=== PATIENT | female | born 1955 | race Caucasian/White ===

== ENCOUNTER 2017-01-21 11:44 | Day surgery (SDC) | payer MEDICARE, MEDICAID ==
[~2017-01-21] VITALS: Ht 170.2 cm; Wt 79.1 kg
--- NOTE | ~2017-01-21 | PRO ---
PATIENT:NATHAN AREVALO MEDICAL RECORD: [id number] : 53 LOCATION:[facility] ADMISSION DATE: 01/21/17 PROCEDURE PERFORMED BY: GONZALEZ CANELA DO PROCEDURE DATE: 01/21/17 PROCEDURE: Esophagogastroduodenoscopy with biopsies. INDICATION: Epigastric pain, generalized abdominal pain, heart burn, dysphagia, and nausea. SCOPE: Olympus video gastroscope. MEDICATIONS: Propofol 200 milligrams IV per anesthesia. ESTIMATED BLOOD LOSS: Minimal. COMPLICATIONS: None. FINDINGS: Informed consent was given. The patient was made comfortable with the above medication. After reaching an adequate level of sedation by slow IV push, the patient was placed on her left side. The endoscope was then advanced under direct visualization through the mouth to the second portion of the duodenum. The upper, middle, and distal thirds of the esophagus appeared normal. At the gastroesophageal junction there was evidence of mild LA class B reflux induced esophagitis. There was also an appearance that could be possible Hobbs's esophagus. Random biopsies were taken of the gastroesophageal junction to submit for histology and to rule out Hobbs's. The endoscope was advanced beyond the gastroesophageal junction into the stomach and retroflexed to view the cardia. There was a area of inflamed tissue involving the cardia which was biopsied. In the fundus and body of the stomach there were multiple benign appearing fundic gland type polyps. Throughout the stomach and especially in the antral area there was erythema and granularity consistent with possible gastritis. Random biopsies were taken to submit for histology and to rule out Helicobacter-pylori. The endoscope was advanced beyond the pylorus and in the duodenum where the bulb and second portion of the duodenum appeared normal. IMPRESSIONS: 1. LA class B reflux induced esophagitis. 2. Possible Hobbs's esophagus, biopsies taken. 3. Erythema and granularity in the stomach consistent with gastritis, biopsies taken. 4. Inflamed tissue involving the cardia, biopsies taken. 5. Benign appearing sessile fundic gland type polyps throughout the body and fundus of the stomach. PLAN/RECOMMENDATIONS: 1. Discharge home when recovery parameters are met. 2. Gastroesophageal reflux disease diet and reflux precautions. 3. Continue current medications. 4. Add Carafate tabs, 1 gram dissolved in 20 milliliters of water and taken four times a day times two weeks or longer if this helps symptoms. 5. Gastric emptying scan regarding epigastric pain and nausea. 6. Consider upper gastrointestinal with small bowel follow through regarding the symptoms of generalized pain, nausea, and dysphagia. 7. Follow up biopsy specimen results and symptom changes with initiation of Carafate. PROCEDURE NOTE [id number] NATHAN AREVALO NATHAN A DO CC: [id number] DICTATION DATE: 01/21/1749 STEM MOUNTER: TC 01/22/1749 [facility] 01/21/17 [id number] [place] [address]
[2017-01-21] MEDS ORDERED: PROTONIX40 MG PO (12:21)
[2017-01-21] MEDS ORDERED: COREG12.5 MG PO (12:22)
[2017-01-21] MEDS ORDERED: LEVOTHYROXINE100 MCG PO (12:22)
[2017-01-21 12:23] LABS: BASOPHILS 1.3 % (0-2); EOSINOPHILS 4.1 % (0-7); HEMATOCRIT 53.5 % (36.0-48.0); HEMOGLOBIN 17.7 g/dL (12-16); IMMATURE GRANULOCYTES 0.1 % (0-5); LYMPHOCYTES 29.2 % (15-50); MCH 26.4 pg (26.0-34.0); MCHC 33.1 g/dL (31.0-37.0); MCV 79.9 fL (80.0-100.0); MEAN PLATELET VOLUME 9.9 fL (7.4-10.4); MONOCYTES 7.6 % (2-11); NEUTROPHILS 57.7 % (40-80); PLATELET COUNT 426 10x3/uL (130-400); RDW 15.4 % (11.5-14.5); WBC 7.9 10x3/uL (4.8-10.8)
[2017-01-21] MEDS ORDERED: OXYCODONE HCL10 MG PO (12:23)
[2017-01-21] MEDS ORDERED: XANAX0.5 MG PO (12:23)
[2017-01-21] MEDS ORDERED: GABAPENTIN100 MG PO (12:25)
[2017-01-21 12:26] VITALS: BP 136/76; Ht 170.2 cm; Wt 79.1 kg
[2017-01-21 12:34] LABS: ANION GAP 10.8 mmol/L (8-16); CARBON DIOXIDE 29.2 mmol/L (21.0-32.0); CREATININE - SERUM 1.2 mg/dL (0.6-1.3)
--- NOTE | 2017-01-21 15:23 | NUR ---
1455- PT SITTING UP WITH HOB ELEVATED. SON AT BEDSIDE. DR. CANELA DISCUSSING PROCEDURAL FINDINGS WITH PT AND SON. VSS. WILL MONITOR. 1510- FULL LIQUIDS TOLERATED. SCHEDULING FOR GES AND ABD US STARTED. PREAUTHORIZATION NEEDED PER INSURANCE. OFFICE AND SCHEDULING FAXED ORDER SHEET. PT AWARE THAT OFFICE WILL CONTACT HER WITH THESE APPOINTMENTS.
--- NOTE | 2017-01-21 15:36 | NUR ---
1530- IV D/C'D, PT TOLERATED. CATHETER INTACT. VSS. PT UP OOB TO BR TO DRESS, VOIDED WITHOUT DIFFICULTY. WILL MONITOR.
--- NOTE | 2017-01-21 16:30 | NUR ---
1550- DISCHARGE INSTRUCTIONS COMPLETED. 1625- PT DISCHARGED VIA WHEELCHAIR WITH SON.
== END 2017-01-21 16:25 | disposition home or self-care (01) ==
LOC: D.OPS 11:44
PROVIDERS: Anesthesiology
DX: R10.13 Epigastric pain (principal); K21.0 Gastro-esophageal reflux disease with esophagitis; R13.10 Dysphagia, unspecified; I25.10 Atherosclerotic heart disease of native coronary artery without angina pectoris; I10 Essential (primary) hypertension; E03.9 Hypothyroidism, unspecified; K44.9 Diaphragmatic hernia without obstruction or gangrene; Z01.812 Encounter for preprocedural laboratory examination

== ENCOUNTER → 2017-01-30 10:06 | Outpatient (CLI) | payer MEDICARE, MEDICAID ==
[2017-01-21 12:26] VITALS: BMI 27.3
[~2017-01-30 10:06] MED LIST: COREG12.5 MG PO; GABAPENTIN100 MG PO; LEVOTHYROXINE100 MCG PO; OXYCODONE HCL10 MG PO; PROTONIX40 MG PO; XANAX0.5 MG PO
== END | disposition home or self-care (01) ==
LOC: D.US 10:06 → D.NM 11:30
DX: R10.9 Unspecified abdominal pain (principal); R11.0 Nausea

== ENCOUNTER 2017-02-04 08:58 | Day surgery (SDC) | payer MEDICARE, MEDICAID ==
[~2017-02-04] VITALS: Ht 170.2 cm; Wt 79.1 kg
--- NOTE | ~2017-02-04 | OP ---
PATIENT NAME: NATHAN AREVALO MEDICAL RECORD: [id number] :53 LOCATION[facility] ADMISSION DATE: SURGEON: GONZALEZ CANELA DO OPERATION DATE: 02/04/17 PROCEDURE: Colonoscopy with biopsy and polypectomy using both a hot snare and hot forceps. INDICATIONS FOR PROCEDURE: Change in bowel habits, constipation. SCOPE: Olympus video pediatric colonoscope. MEDICATIONS: Propofol 500 milligrams IV per anesthesia. WITHDRAWAL TIME: 22 minutes. ESTIMATED BLOOD LOSS: Minimal. COMPLICATIONS: None. FINDINGS: Informed consent was given. The patient was made comfortable with the above medication. After reaching an adequate level of sedation by slow IV push, the patient was placed on her left side. A digital rectal examination was performed and was normal. The endoscope was then advanced under direct visualization through the rectum to the cecum. The scope was slowly withdrawn, and the mucosa was carefully examined. The prep was good. In the right side of the colon there was evidence of prior intervention with a ileocolonic anastomosis. Biopsies were taken around that site regarding some granulation tissue which was visualized. In the transverse colon there were two polyps. They measured in size from 4 to 7 millimeters in size. Both were removed with hot snare polypectomy. In the descending colon there was a third polyp visualized which was small and measured approximately 3 millimeters in size. It was removed with hot forceps. There was evidence of mild diverticulosis in the sigmoid colon. Retroflexion was performed in the rectum with visualization of small nonbleeding internal hemorrhoids. The scope was then withdrawn from the patient in its entirety. The patient tolerated the procedure well, and there were no complications. IMPRESSIONS: 1. Three polyps as described above removed with a combination of hot forceps and snare cautery polypectomy. 2. Mild diverticulosis of the sigmoid colon. 3. Nonbleeding internal hemorrhoids which are small. PLAN/RECOMMENDATIONS: 1. Discharge home when recovery parameters are met. 2. Continue current diet. 3. Consider supplementing diet with one to two tablespoons of Metamucil daily. 4. Trial of Linzess 290 micrograms daily. The patient should inform the clinic within two weeks if this is helping so that titration of medications can be performed if needed. 5. Continue current medications. 6. Follow up in gastroenterology clinic as needed. 7. Recall colonoscopy in three years. OPERATIVE REPORT [id number] IRINANATHAN Herrera NATHAN A DO CC: [id number] DICTATION DATE: 02/04/17 1500 PREVENTIVE MAINTENANCE ENGINEER: DM 02/05/17 1232 [facility] 02/04/17 [id number] [place] [address]
[2017-02-04] MEDS ORDERED: CARAFATE1 G PO (11:18)
[2017-02-04] MEDS ORDERED: ZOFRAN8 MG PO (11:19)
[2017-02-04] MEDS ORDERED: MIRALAX17 GM PO (11:20)
[2017-02-04 11:28] VITALS: BP 164/83; Ht 170.2 cm; Wt 79.1 kg
[2017-02-04 12:42] LABS: ANION GAP 16.4 mmol/L (8-16); CALCIUM 9.1 mg/dL (8.5-10.1); CARBON DIOXIDE 23.9 mmol/L (21.0-32.0); POTASSIUM - SERUM 4.3 mmol/L (3.5-5.1)
[2017-02-04 13:19] LABS: BASOPHILS 0.8 % (0-2); EOSINOPHILS 3.4 % (0-7); HEMATOCRIT 53.2 % (36.0-48.0); HEMOGLOBIN 17.6 g/dL (12-16); IMMATURE GRANULOCYTES 0.1 % (0-5); LYMPHOCYTES 20.1 % (15-50); MCH 26.4 pg (26.0-34.0); MCHC 33.1 g/dL (31.0-37.0); MCV 79.8 fL (80.0-100.0); MEAN PLATELET VOLUME 10.3 fL (7.4-10.4); MONOCYTES 7.1 % (2-11); NEUTROPHILS 68.5 % (40-80); PLATELET COUNT 434 10x3/uL (130-400); RDW 15.6 % (11.5-14.5); WBC 7.9 10x3/uL (4.8-10.8)
[2017-02-04 13:26] LABS: RBC 6.67 10x6/uL (4.00-5.40)
--- NOTE | 2017-02-04 15:27 | NUR ---
1425 WATER [facility] COLA GIVEN PER REQUEST 1450 PIV DC WITH CATHETER TIP INTACT MICHAEL WELL 1500 PT STATED SHE WANTED DR CANELA TO SEE A VENKATA UNDER BOTH BREAST. INFO REPORTED TO NATHAN ERWIN RN TO LET DR CANELA KNOW PT WANTS TO SEE HIM BEFORE SHE IS DC'D.
--- NOTE | 2017-02-04 15:29 | NUR ---
DR CANELA TO PT RM TO SEE RASH.
--- NOTE | 2017-02-04 19:21 | NUR ---
1515 PT DC HOME VIA WC ESCORTED OUT WITH SON DRIVING
== END 2017-02-04 15:15 | disposition home or self-care (01) ==
LOC: D.OPS 08:58
PROVIDERS: Anesthesiology
DX: D12.4 Benign neoplasm of descending colon (principal); D12.3 Benign neoplasm of transverse colon; K57.30 Diverticulosis of large intestine without perforation or abscess without bleeding; K64.8 Other hemorrhoids; K59.00 Constipation, unspecified; Z01.812 Encounter for preprocedural laboratory examination

== ENCOUNTER 2017-12-04 12:35 | Day surgery (SDC) | payer MEDICARE, MEDICAID ==
[2017-02-04 11:28] VITALS: BMI 27.3
--- NOTE | ~2017-12-04 | OP ---
PATIENT NAME: NATHAN AREVALO MEDICAL RECORD: [id number] :53 LOCATION:[facility] ADMISSION DATE: SURGEON: GONZALEZ CANELA DO DATE OF OPERATION: 12/04/2017 PROCEDURE: EGD with biopsies. INDICATIONS FOR PROCEDURE: Dysphagia, heartburn, nausea and vomiting, epigastric pain. SCOPE: Olympus video gastroscope. MEDICATIONS: Propofol 160 mg IV per anesthesia. ESTIMATED BLOOD LOSS: Minimal. COMPLICATIONS: None. FINDINGS: Informed consent was given. The patient was made comfortable with the above medication. After reaching an adequate level of sedation by slow IV push, the patient was placed on her left side. The endoscope was advanced under direct visualization through the mouth to the jejunum with ease. The upper, middle, and lower thirds of the esophagus appeared normal. Two cold forceps biopsies were taken from the midesophagus to rule out eosinophilic esophagitis or other etiologies for her dysphagia. At the GE junction, there was evidence of LA class B reflux induced esophagitis and possible Hobbs's esophagus. Two cold forceps biopsies were taken from this site. Of note, biopsies were taken from this site in January of 2017 and showed no evidence of intestinal metaplasia. The endoscope was advanced beyond the GE junction into the stomach and retroflexed to view the cardia, where a small sliding hiatal hernia was present. Throughout the fundus, body of the stomach, and antrum, there were multiple small benign-appearing fundic gland type polyps. The mucosa of the stomach appeared normal without ulcerations or erosions or obvious evidence of gastritis. Multiple cold forceps biopsies were taken to submit for histology and to rule out H. pylori. The endoscope was advanced beyond the pylorus into the duodenum and down into the jejunum. The mucosa appeared normal. Multiple cold forceps biopsies were taken from both the duodenum and the jejunum regarding her symptoms. The endoscope was then withdrawn from the patient. The patient tolerated the procedure well and there were no complications. IMPRESSION: 1. LA class B reflux induced esophagitis and possible Hobbs's esophagus, biopsies pending. 2. Small sliding hiatal hernia. 3. Benign appearing fundic gland type gastric polyps. 4. Otherwise normal esophagogastroduodenoscopy. PLAN AND RECOMMENDATIONS: 1. Discharge home when recovery parameters are met. 2. Follow up biopsy specimen results. 3. Continue current diet with reflux precautions. 4. Continue current medications, but consider reducing pantoprazole to 40 mg daily rather than b.i.d. 5. Can supplement antacid regimen with use of a histamine francie such as Pepcid or Zantac in the evening for breakthrough symptoms. OPERATIVE REPORT [id number] NATHAN AREVALO 6. Consider a gastric emptying study for the ongoing nausea and vomiting. 7. Consider barium esophagram and/or esophageal manometry regarding the ongoing dysphagia in light of a normal endoscopy. Higher yield would probably be gained with esophageal manometry. I would discuss these tests with the patient and proceed once informed consent was given. TRANSINT:[id number] Voice Confirmation ID: [id number] DOCUMENT ID: [id number] GONZALEZ CANELA DO at 1558 CC: [id number] DICTATION DATE: 12/04/171555 DIE TRY OUT WORKER: 12/04/171915 [facility] 12/04/17 [facility] [address] [place] [address]
[~2017-12-04 12:35] MED LIST changes: +CARAFATE1 G PO; +MIRALAX17 GM PO; +ZOFRAN8 MG PO
[2017-12-04] MEDS ORDERED: AMBIEN10 MG PO (14:09)
[2017-12-04] MEDS ORDERED: JAKAFI5 MG PO (14:09)
[2017-12-04 14:14] LABS: BASOPHILS 0.7 % (0-2); EOSINOPHILS 1.6 % (0-7); HEMATOCRIT 33.2 % (36.0-48.0); HEMOGLOBIN 11.2 g/dL (12-16); IMMATURE GRANULOCYTES 0.3 % (0-5); MCH 28.6 pg (26.0-34.0); MCHC 33.7 g/dL (31.0-37.0); MCV 84.9 fL (80.0-100.0); MEAN PLATELET VOLUME 9.6 fL (7.4-10.4); MONOCYTES 7.7 % (2-11); NEUTROPHILS 49.7 % (40-80); RBC 3.91 10x6/uL (4.00-5.40); WBC 7.5 10x3/uL (4.8-10.8)
[2017-12-04 14:17] LABS: PLATELET COUNT 328 10x3/uL (130-400)
[2017-12-04 14:29] LABS: CALCIUM 9.2 mg/dL (8.5-10.1); CARBON DIOXIDE 28.7 mmol/L (21.0-32.0); POTASSIUM - SERUM 4.7 mmol/L (3.5-5.1)
== END 2017-12-04 17:10 | disposition home or self-care (01) ==
LOC: D.OPS 12:35
PROVIDERS: Anesthesiology
DX: R13.10 Dysphagia, unspecified (principal); R10.13 Epigastric pain; R11.2 Nausea with vomiting, unspecified; I25.10 Atherosclerotic heart disease of native coronary artery without angina pectoris; I10 Essential (primary) hypertension; E03.9 Hypothyroidism, unspecified; K21.9 Gastro-esophageal reflux disease without esophagitis; K31.7 Polyp of stomach and duodenum; K44.9 Diaphragmatic hernia without obstruction or gangrene; Z01.812 Encounter for preprocedural laboratory examination

== ENCOUNTER 2017-12-10 10:11 | Outpatient (CLI) | payer MEDICARE, MEDICAID ==
[2017-02-04 11:28] VITALS: BMI 27.3
[~2017-12-10 10:11] MED LIST changes: +AMBIEN10 MG PO; +JAKAFI5 MG PO
== END 2017-12-10 12:05 ==
LOC: D.OPS 10:11
DX: R13.10 Dysphagia, unspecified (principal)